=== PATIENT | female | born 1985 | race Two or more races ===

== ENCOUNTER 2017-02-05 18:10 | Inpatient (IN) | payer OTHER ==
[~2017-02-05] VITALS: Ht 177.8 cm; Wt 107.0 kg
[2017-02-05] VITALS (9 sets, daily range): BP systolic 119–137; BP diastolic 68–81
[~2017-02-05 18:10] MED LIST: IBUPROFEN800 MG PO
[2017-02-05 19:52] LABS: EOSINOPHIL (%) 0.3 % (0-5); IMMATURE GRANULOCYTE (%) 0.3 % (0.0-0.7); INSTRUMENT ABS NEUTROPHIL CT 5.9 K/uL; LYMPHOCYTE COUNT 1.5 K/uL (1.0-2.8); MCH 26.7 PG (29.0-34.0); MCHC 33.6 G/DL (30.0-36.0); MCV 79.3 FL (83-99); MEAN PLAT.VOLUME 11.7 uM^3 (9.5-12.4); MONOCYTE (%) 6.8 % (3-12); MONOCYTE COUNT 0.5 K/uL (0-0.8); NEUTROPHIL (%) 74.1 % (45-76); NEUTROPHIL COUNT 5.9 K/uL (1.8-6.4); PLATELET COUNT 164 K/uL (156-360); RBC DIS.WIDTH-SD 40.3 % (39-53); RED BLOOD COUNT 4.16 M/uL (3.80-5.20)
[2017-02-06 01:03] VITALS: BP 132/71
[2017-02-06 02:12] VITALS: BP 108/67
[2017-02-06] MEDS ORDERED: TUMS500 MG PO (03:09)
[2017-02-06] MEDS ORDERED: ZANTAC150 MG PO (03:09)
[2017-02-06] MEDS ORDERED: PRENATAL COMPL1 EACH PO (03:10)
[2017-02-06 07:09] VITALS: BP 128/78
[2017-02-06 07:16] LABS: EOSINOPHIL (%) 0.2 % (0-5); HEMATOCRIT 30.4 % (36.0-46.0); IMMATURE GRANULOCYTE (%) 0.4 % (0.0-0.7); INSTRUMENT ABS NEUTROPHIL CT 8.9 K/uL; LYMPHOCYTE COUNT 1.6 K/uL (1.0-2.8); MCH 25.7 PG (29.0-34.0); MCHC 32.2 G/DL (30.0-36.0); MCV 79.8 FL (83-99); MEAN PLAT.VOLUME 11.1 uM^3 (9.5-12.4); MONOCYTE (%) 7.3 % (3-12); MONOCYTE COUNT 0.8 K/uL (0-0.8); NEUTROPHIL (%) 78.1 % (45-76); NEUTROPHIL COUNT 8.9 K/uL (1.8-6.4); PLATELET COUNT 150 K/uL (156-360); RBC DIS.WIDTH-CV 13.9 % (11.8-14.6); RED BLOOD COUNT 3.81 M/uL (3.80-5.20); WHITE BLOOD COUNT 11.4 K/uL (4.1-10.2)
[2017-02-06 15:48] VITALS: BP 125/68
[2017-02-06 23:00] VITALS: BP 133/83
[2017-02-07 06:55] VITALS: BP 128/81
== END 2017-02-07 13:51 | disposition home or self-care (01) | DRG 775 ==
LOC: LDRP-OP 18:10 → 2WEST 18:11 → LDRP-OP 03-08 19:19
PROVIDERS: Advanced Practice Midwife
PROC: 10907ZC Drainage of Amniotic Fluid, Therapeutic from Products of Conception, Via Natural or Artificial Opening (ICD-10-PCS; principal; 2017-02-05)
PROC: 10E0XZZ Delivery of Products of Conception, External Approach (ICD-10-PCS; principal; 2017-02-05)
DX: O99.214 Obesity complicating childbirth (principal); E66.9 Obesity, unspecified; Z68.30 Body mass index [BMI] 30.0-30.9, adult; Z37.0 Single live birth; Z3A.40 40 weeks gestation of pregnancy; Z87.891 Personal history of nicotine dependence; Z82.49 Family history of ischemic heart disease and other diseases of the circulatory system; Z87.440 Personal history of urinary (tract) infections; O69.81X0 Labor and delivery complicated by cord around neck, without compression, not applicable or unspecified
CPT/HCPCS: 85025